=== PATIENT | male | born 1995 | race Two or more races ===

== ENCOUNTER 2016-08-28 10:13 | Emergency (ER) | payer OTHER ==
[2016-08-28] MEDS ORDERED: Lidocaine 2% VISCOUS* 15 ML UDC PO ONE (11:07)
[2016-08-28] MEDS ORDERED: Ketorolac INJ* 30 MG/ML 1 ML VIAL IV PUSH ONE (11:07)
[2016-08-28] MEDS ORDERED: NS 0.9% 1000 ML* 2,000 ML IV ONE (11:07)
[2016-08-28] MEDS ORDERED: Al Hydrox/Mg Hydrox/Simet LIQ* 30 ML UDC PO ONE ×2 (11:07→13:05)
[2016-08-28] MEDS ORDERED: Pantoprazole IV* 80 MG in NS 0.9% 250 ML* 250 ML IVPB ONE (11:08)
--- NOTE | 2016-08-28 11:23 | ED ---
Abdominal Pain/Male - HPI Summary HPI Summary: 20M presents with epigastric pain for 5 days. He states he has has loose stools but had a solid stool today. He admits to heart burn. He denies any chronic ETOH or ibuprofen use. He states he also has lower abdominal pain that is dull in comparison to his epigastric pain. He states that he had occasionally blood streaks in his stool and when he swipes. He has been having hives for the past two week and his allergiest has been having him take zantac and zytrec and has has been on prednisone. He states that he thinks the prednisone has been causing his pain. - History of Current Complaint Chief Complaint: EDAbdPain Stated Complaint: ABD PAIN Time Seen by Provider: 08/28/16 10:40 Pain Intensity: 10 - Allergies/Home Medications Allergies/Adverse Reactions: Allergies Allergy/AdvReac Type Severity Reaction Status Date / Time Penicillins [PCN] Allergy Rash Verified 05/11/15 14:29 PMH/Surg Hx/FS Hx/Imm Hx Endocrine/Hematology History: Denies: Hx Anticoagulant Therapy Cardiovascular History: Denies: Hx Hypertension Infectious Disease History: No Infectious Disease History: Denies: Traveled Outside the [place] in Last 30 Days - Family History Known Family History: Positive: Hypertension - Social History Alcohol Use: None Substance Use Type: Reports: None Smoking Status (MU): Never Smoked Tobacco Review of Systems Negative: Fever Negative: Chest Pain Negative: Shortness Of Breath Positive: Abdominal Pain, Diarrhea. Negative: Vomiting, Nausea Negative: dysuria All Other Systems Reviewed And Are Negative: Yes Physical Exam Triage Information Reviewed: Yes Vital Signs On Initial Exam: Initial Vitals Temp Pulse Resp BP Pulse Ox 98.7 F 97 20 141/84 100 08/28/16 10:13 08/28/16 10:13 08/28/16 10:13 08/28/16 10:13 08/28/16 10:13 Vital Signs Reviewed: Yes Appearance: Positive: Pain Distress Skin: Positive: Warm, Dry Head/Face: Positive: Normal Head/Face Inspection Eyes: Positive: Normal, Conjunctiva Clear ENT: Positive: Normal ENT inspection, Pharynx normal, TMs normal Respiratory/Lung Sounds: Positive: Clear to Auscultation, Breath Sounds Present Cardiovascular: Positive: Normal, RRR Abdomen Description: Positive: Soft, Other: - mild diffuse tenderness, severe tenderness in epigastric region Bowel Sounds: Positive: Present Diagnostics - Vital Signs Vital Signs Temp Pulse Resp BP Pulse Ox 08/28/16 10:46 98.7 F 97 20 141/84 100 08/28/16 10:13 98.7 F 97 20 141/84 100 - Laboratory Result Diagrams: 08/28/16 11:40 08/28/16 11:40 Lab Statement: Any lab studies that have been ordered have been reviewed, and results considered in the medical decision making process. - CT abd CT Interpretation: Positive (See Comments) - IMPRESSION: THERE IS MILD DIFFUSE THICKENING OF THE WALL OF THE STOMACH POSSIBLY DUE TO INCOMPLETE DISTENTION OR INFLAMMATION. RECOMMEND CLINICAL CORRELATION. CT Interpretation Completed By: Radiologist Re-Evaluation - Re-Evaluation First Eval Re-Evaluation Time: 11:00 Change: Worse Comment: developed hives on face Second Eval Re-Evaluation Time: 12:50 Change: Worse Comment: angioedema present so gave epipen Third Eval Re-Evaluation Time: 15:49 Change: Improved Comment: hives gone and angioedema decreased, no chest pain or SOB, abdomen pain improved Abdominal Pain Fem Course/Dx - Course Course Of Treatment: 20M presents with severe epigastric pain from [employer]. He admits to heart burn and loose stool. He denies any nausea or vomiting. He has been breaking out in hives this past week. on exam tenderness in epigastric region. labs wbc 12. crp 4.28. CT without contrast inflammation of stomach. attempted to treat for gastritis and gave GI cocktail and PPI and patient broke out in hives. gave bendaryl as patient did not want steriod. patient hives continued to get worst so gave steriod. patient then develop angioedema and chest pain so gave epiephrine and patient chest pain and angioedema resolved. gave pepcid and hives reoccurred. discussed potential admission for allergic reaction vs d/c and patietn would like to be d/c. patient abdominal pain has resolved. patient spoke with dr watson who decided will continue zantac at home as has been able to tolerate it before. told not to use ppi and pepcid that sent to pharmacy. patient understands and agrees with plan - Diagnoses Differential Diagnosis/HQI/PQRI: Appendicitis, Peptic Ulcer Disease, Other - allergic reaction Provider Diagnoses: Gastritis, Allergic reaction Discharge - Discharge Plan Condition: Good Disposition: HOME Prescriptions: Epinephrine [Epipen 2-Hima] 0.3 mg IM ONCE PRN #1 packet PRN Reason: Respiratory Distress Famotidine TAB* [Pepcid 20 MG TAB*] 20 mg PO BID #28 tab Methylprednisolone [Medrol Dosepak 4 MG*] 4 mg PO .SEE [employer] INSTRUCTION #1 packet Omeprazole CAP* [Prilosec CAP* 20 MG] 20 mg PO DAILY #14 cap. Patient Education Materials: Gastritis (ED), Anaphylaxis (ED) Referrals: ELANA Whipple [Primary Care Provider] - Nain Wilkerson MD [Medical Doctor] - Additional Instructions: Take zantac twice a day Avoid hot and spicy food Take Benadryl every 6 hours for two days Follow direction on steroid package for taper Take Tylenol for pain every 6 hours Follow up with GI and heliotherapist Return to ED if develop chest pain, shortness or breath, difficulty swallowing, or any new or worsening symptoms
[2016-08-28 11:52] LABS: Hematocrit 47 % (42-52); Hemoglobin 15.7 g/dl (14.0-18.0); Mean Corpuscular HGB Conc 33 g/dl (31-36); Mean Corpuscular Hemoglobin 30 pg (27-31); Mean Corpuscular Volume 89 fL (80-94); Mean Platelet Volume 8 um3 (7.4-10.4); Red Blood Count 5.31 10^6/ul (4.0-5.4); Red Cell Distribution Width 13 % (10.5-15); White Blood Count 12.4 10^3/ul (3.5-10.8)
[2016-08-28] MEDS ORDERED: methylPREDNISolone 125 MG* 2 ML VIAL IV ONE ×2 (12:01→12:24)
[2016-08-28] MEDS ORDERED: diPHENhydraMINE IV* 50 MG/ML 1 ml VIAL (BENADRYL) IV ONE (12:01)
[2016-08-28] MEDS ORDERED: diPHENhydraMINE IV* 50 MG/ML 1 ml VIAL (BENADRYL) ONE (12:03)
[2016-08-28 12:07] LABS: ALT 42 U/L (7-52); AST 24 U/L (13-39); Albumin 4.1 g/dL (3.2-5.2); Alkaline Phosphatase 52 U/L (34-104); Anion Gap 7 mmol/L (2-11); BUN/Creatinine Ratio 17.8 (8-20); Blood Urea Nitrogen 13 mg/dL (6-24); CO2 Carbon Dioxide 26 mmol/L (22-32); Calcium 9.4 mg/dL (8.6-10.3); Chloride 101 mmol/L (101-111); EGFR African American 174.4 (>60); EGFR Non-African American 135.6 (>60); Globulin 2.9 g/dL (2-4); Glucose 102 mg/dL (70-100); Lipase < 10 U/L (11.0-82.0); Potassium 3.9 mmol/L (3.5-5.0); Sodium 134 mmol/L (133-145)
[2016-08-28] MEDS ORDERED: Ranitidine INJ(*) 25 MG/ML 2 ML VIAL IVPB ONE (12:25)
[2016-08-28] MEDS ORDERED: Al Hydrox/Mg Hydrox/Simet LIQ* 30 ML UDC ONE (13:06)
[2016-08-28] MEDS ORDERED: EPINEPHrine AMP 1 MG/ML SUBCUT ONE (13:18)
[2016-08-28] MEDS ORDERED: Ranitidine IV (NF) 50 MG in NS 0.9% 50 ML* 50 ML IVPB ONE (13:43)
[2016-08-28] MEDS ORDERED: Famotidine IV* 10 MG/ML 2 ML (20 mg) IV SLOW PU ONE (14:09)
--- NOTE | 2016-08-28 14:32 | RAD ---
INDICATION: Epigastric pain. COMPARISON: There are no prior studies available for comparison. TECHNIQUE: A CT scan of the abdomen and pelvis was performed without intravenous or oral contrast. Contiguous axial sections were obtained from the lung bases through the symphysis pubis. Images were reconstructed in the coronal and sagittal planes. FINDINGS: The lung bases are clear. No pleural effusion is present. The liver and spleen are within normal limits in size without significant focal abnormality on this noncontrast study. No calcified gallstones are seen. The pancreas appears to be within normal limits in size. The adrenal glands and kidneys are normal in size. No renal calculi or hydronephrosis is seen. The aorta is normal in caliber without significant calcific plaque. No significant enlarged retroperitoneal lymph nodes are seen. The stomach, small and large bowel appear nondistended. There is mild diffuse thickening of the wall of the stomach. The appendix appears to be within normal limits. There is no evidence for diverticulitis or colitis. There is a tiny periumbilical hernia containing fat. No free intraperitoneal air or fluid is seen. No significant focal osseous abnormality is seen. IMPRESSION: THERE IS MILD DIFFUSE THICKENING OF THE WALL OF THE STOMACH POSSIBLY DUE TO INCOMPLETE DISTENTION OR INFLAMMATION. RECOMMEND CLINICAL CORRELATION.
[2016-08-28 16:33] VITALS: BP 127/71
== END 2016-08-28 17:28 | disposition home or self-care (01) ==
LOC: ED 10:13
DX: K29.70 Gastritis, unspecified, without bleeding (principal); T78.40XA Allergy, unspecified, initial encounter; X58.XXXA Exposure to other specified factors, initial encounter
CPT/HCPCS: 36415; 74176; 80053; 83690; 85025; 86141; 96374; 96375; 99284; A9270-GY; J0171; J1200; J1885; J2780; J2930